=== PATIENT | female | born 1980 | race Caucasian/White ===

== ENCOUNTER 2024-04-12 10:35 | Emergency (ER) | payer MEDICAID, SELFPAY ==
[2024-04-12 10:41] VITALS: PULSE 83; TEMP 36.6; O2SAT 99; BMI 32.1
[2024-04-12 11:26] LABS: Basophils Percent Auto 0.7 % (0.2-2.0); Eosinophils Absolute Auto 0.3 10^3/uL (0.0-0.7); Hematocrit 38.2 % (36.0-48.0); Hemoglobin 12.3 g/dL (12.0-16.0); Immature Granulocytes Abs Auto 0.01 10^3/uL (0.00-0.03); Immature Granulocytes Pct Auto 0.2 % (0.0-0.5); Lymphocytes Absolute Auto 2.2 10^3/uL (1.2-3.8); Lymphocytes Percent Auto 41.6 % (20.5-60.0); Mean Corpuscular HGB Conc 32.2 g/dL (29.9-35.2); Mean Corpuscular Hemoglobin 28.7 pg (26.7-34.0); Mean Corpuscular Volume 89.3 fL (81.0-99.0); Mean Platelet Volume 9.7 fL (9.5-13.5); Monocytes Absolute Auto 0.3 10^3/uL (0.3-0.8); Monocytes Percent Auto 5.8 % (1.7-12.0); Neutrophils Absolute Auto 2.5 10^3/uL (1.4-6.5); Neutrophils Percent Auto 46.7 % (43.0-75.0); Platelet Count 315 10^3/uL (150-450); Red Blood Count 4.28 10^6/uL (4.20-5.40); Red Cell Distribution Width 14.3 % (11.0-15.0); White Blood Count 5.4 10^3/uL (4.0-11.0)
[2024-04-12] MEDS: ONDANSETRON PF 4 MG/2 ML VIAL IV (11:32)
[2024-04-12] MEDS: KETOROLAC TROMETHAMINE 30 MG/ML VIAL 15 MG IVP (11:32)
--- NOTE | 2024-04-12 11:43 | CT_ITS ---
[address] [address] Patient Name: LITO SUE MRN: [id number] date: 1980 Sex: F Assigned Patient Location: ER Current Patient Location: Accession/Order Number: [id number] Exam Date: 04/12/2024 11:41 Report Date: 04/12/2024 12:21 At the request of: DAVID DOMINGUEZ Procedure: CT abdomen pelvis wo con EXAMINATION: CT abdomen pelvis wo con HISTORY: epigastric pain ---hernia ? COMPARISON: No relevant comparison available. TECHNIQUE: Axial, Coronal, and Sagittal images were obtained without and/or with IV contrast as indicated by examination type. Dose reduction techniques were achieved by using automated exposure control and/or adjustment of mA and/or kV according to patient size and/or use of iterative reconstruction technique. FINDINGS: LUNG BASES: No visible pulmonary or pleural disease. LIVER: No enlargement, atrophy, suspicious density, or significant focal lesion. BILIARY: Well distended gallbladder, 13.0 x 5.4 x 5.3 cm. No wall thickening, stones, or abnormal duct dilation. PANCREAS: No lesion, fluid collection, or abnormal duct dilatation. SPLEEN: No enlargement or focal lesion. ADRENALS: No mass or enlargement. KIDNEYS: No mass, obstruction, or calcification. BOWEL/MESENTERY: No visible mass, obstruction, or bowel wall thickening. Normal appendix. AORTA/VASCULAR: No aneurysm or dissection. RETROPERITONEUM: No mass or adenopathy. LYMPH NODES: No adenopathy. URINARY BLADDER: No visible focal wall thickening, lesion, or calculus. PELVIC ORGANS: No visible mass. Pelvic organs appropriate for patient age. ABDOMINAL WALL: 2 small supraumbilical midline ventral hernias containing only fat. The more cephalad one is 3.2 cm in diameter with a small neck but no strangulation. Slightly more inferior, just above the umbilicus is a 3.7 cm fat filled hernia with a small neck, but no strangulation. BONES: No bony lesion or fracture. OTHER: Negative. CT/CT abdomen pelvis wo con IMPRESSION: 1. Well distended gallbladder without appreciable stones or wall thickening; likely due to lack of recent emptying. 2.Fat filled small adjacent supraumbilical midline ventral hernias. No appreciable strangulation or acute involvement. Electronically authenticated by: SARAHI LOYD Date: 04/12/2024 12:21
[2024-04-12 11:49] LABS: Alanine Aminotransferase 10 U/L (14-59); Albumin Globulin Ratio 1.1; Albumin Level 3.7 g/dL (3.4-5.0); Alkaline Phosphatase 71 U/L (46-116); Anion Gap 10.6; Aspartate Amino Transferase 28 U/L (15-37); BUN Creatinine Ratio 15.3; Bilirubin Total 0.3 mg/dL (0.2-1.0); Calcium 9.1 mg/dL (8.5-10.1); Carbon Dioxide 27.4 mmol/L (21.0-32.0); Chloride 101 mmol/L (98-107); Estimated GFR (African America >60 (>=60); Estimated GFR (Non-African Ame >60 (>=60); Globulin 3.5 g/dL; Glucose 91 mg/dL (74-106); Sodium 135 mmol/L (136-145); Total Protein 7.2 g/dL (6.4-8.2)
[2024-04-12 11:56] LABS: HCG Qualitative NEGATIVE (NEGATIVE); Internal Control Within Normal Limits
--- NOTE | 2024-04-12 12:36 | ED_ITS ---
HPI HPI - General Adult General Chief complaint: Abdominal Pain Stated complaint: ABDOMINAL PAIN Time Seen by Provider: 04/12/24 11:02 Source: patient Mode of arrival: walk-in Limitations: no limitations History of Present Illness HPI narrative: The patient presented to us with abdominal pain that started half an hour before arrival, she mentioned that it started all of a sudden associated with some nausea and she was just sitting with no strain The patient have a history of multiple abdominal wall hernia surgeries Related Data Allergies Allergy/AdvReac Type Severity Reaction Status Date / Time No Known Drug Allergies Allergy Verified 04/12/24 10:41 Opioid HPI Opioid Management Most Recent Opioid Data: Last Pain Scale 6 04/12/24 11:32 Last MAR Pain Assessment 04/12/24 11:32 Review of Systems ROS Status of ROS 10 or more systems reviewed and unremark able except as noted in history and below [facility] Surgical History (Updated 04/12/24 @ 10:48 by Danny Romero) H/O tubal ligation ?Z98.51 - Tubal ligation status (ICD-10) H/O hernia repair ?Z98.890 - Other specified postprocedural states (ICD-10) ?Z87.19 - Personal history of other diseases of the digestive system (ICD-10) Social History Little interest or pleasure in doing things: not at all Feeling down, depressed, or hopeless: not at all Exam Narrative Exam Narrative: Nurses notes and vital signs reviewed and patient is not hypoxic. General: Well-appearing and in no apparent distress. Skin: Warm, dry, no pallor noted. No rash. Head: Normocephalic, atraumatic. Neck: Supple, non-tender. Eye: Pupils are equal, round and EOMI. No scleral icterus. Ears, Nose, Mouth, and Throat: TM are clear, no nasal mucosal hypertrophy. Oral mucosa is moist, no posterior oropharynx erythema, uvula is mid-line Cardiovascular: Regular Rate and Rhythm without murmur, gallop or rub. Respiratory: No accessory muscle use or respiratory distress. Lungs are clear to auscultation, no wheezing, rales or rhonchi Chest Wall: no tenderness Back: No midline thoracic or lumbar vertebral tenderness. No CVA tenderness Musculoskeletal: normal ROM, no calf or popliteal tenderness, no lower extremity edema/swelling GI: It was noted that the patient initially had some lump felt in the anterior abdominal wall it was easily reduced ,abdomen is soft, non-distended. Normal bowel sounds. No masses appreciated. No tenderness to palpation. No rebound, guarding, or rigidity noted. Neurological: A&O x4. No cranial nerve dysfunction observed. No truncal ataxia. Moves all extremities. Sensation intact. Psychiatric: Cooperative and interactive. Normal mood and affect. Constitutional Vital Signs, click to edit/add: Last Vital Signs Temp 97.9 F 04/12/24 10:41 Pulse 80 04/12/24 12:49 Resp 16 04/12/24 12:49 BP 135/70 04/12/24 12:49 Pulse Ox 100 04/12/24 12:49 O2 Del Method Room Air 04/12/24 12:49 Course Vital Signs Vital signs: Vital Signs Temperature 97.9 F 04/12/24 10:41 Pulse Rate 83 04/12/24 10:41 Respiratory Rate 20 04/12/24 10:41 Pulse Oximetry 99 04/12/24 10:41 Oxygen Delivery Method Room Air 04/12/24 10:41 Temperature 97.9 F 04/12/24 10:41 Pulse Rate 80 04/12/24 12:49 Respiratory Rate 16 04/12/24 12:49 Blood Pressure 135/70 04/12/24 12:49 Pulse Oximetry 100 04/12/24 12:49 Oxygen Delivery Method Room Air 04/12/24 12:49 Medical Decision Making [facility] Narrative Medical decision making narrative: The patient had a very small possible hernia mostly fat-containing that was reduced in the ER after which the blood workup and the CAT scan showed no acute pathology except for the fat-containing hernia The patient will continue supportive care as she have no more symptoms in the ER and she was referred to general surgery as outpatient patient will come back in case any pain she will avoid any tight clothing and she would avoid any straining The patient is to follow up with primary care physician in next 2-3 days or to return to the emergency department should any of the signs or symptoms worsen or new symptoms develop. The patient agrees with the following Diagnosis and Treatment plan and the patient will be discharged home. Lab Data Labs: Lab Results 04/12/24 Range/Units 11:19 WBC 5.4 (4.0-11.0) 10^3/uL RBC 4.28 (4.20-5.40) 10^6/uL Hgb 12.3 (12.0-16.0) g/dL Hct 38.2 (36.0-48.0) % MCV 89.3 (81.0-99.0) fL MCH 28.7 (26.7-34.0) pg MCHC 32.2 (29.9-35.2) g/dL RDW 14.3 (11.0-15.0) % Plt Count 315 (150-450) 10^3/uL MPV 9.7 (9.5-13.5) fL Neut % (Auto) 46.7 (43.0-75.0) % Lymph % (Auto) 41.6 (20.5-60.0) % [place] % (Auto) 5.8 (1.7-12.0) % Eos % (Auto) 5.0 (0.9-7.0) % Baso % (Auto) 0.7 (0.2-2.0) % Neut # (Auto) 2.5 (1.4-6.5) 10^3/uL Lymph # (Auto) 2.2 (1.2-3.8) 10^3/uL [place] # (Auto) 0.3 (0.3-0.8) 10^3/uL Eos # (Auto) 0.3 (0.0-0.7) 10^3/uL Baso # (Auto) 0.0 (0.0-0.1) 10^3/uL Abs Immat Gran (auto) 0.01 (0.00-0.03) 10^3/uL Imm/Tot Granulo (auto) 0.2 (0.0-0.5) % Sodium 135 L (136-145) mmol/L Potassium 4.0 (3.5-5.1) mmol/L Chloride 101 (98-107) mmol/L Carbon Dioxide 27.4 (21.0-32.0) mmol/L Anion Gap 10.6 BUN 13.0 (7.0-18.0) mg/dL Creatinine 0.85 (0.55-1.02) mg/dL Est GFR ( Amer) >60 (>=60) Est GFR (Non-Af Amer) >60 (>=60) BUN/Creatinine Ratio 15.3 Glucose 91 (74-106) mg/dL Calcium 9.1 (8.5-10.1) mg/dL Total Bilirubin 0.3 (0.2-1.0) mg/dL AST 28 (15-37) U/L ALT 10 L (14-59) U/L Alkaline Phosphatase 71 (46-116) U/L Total Protein 7.2 (6.4-8.2) g/dL Albumin 3.7 (3.4-5.0) g/dL Globulin 3.5 g/dL Albumin/Globulin Ratio 1.1 Serum HCG, Qual Negative (NEGATIVE) Discharge Plan Discharge Chief Complaint: Abdominal Pain Clinical Impression: Abdominal wall hernia Patient Disposition: Home, Self-Care Time of Disposition Decision: 12:37 Condition: Good Print Language: Czech Instructions: Ventral Hernia Repair (DC) Referrals: Bandar Amaro DO [Physician] - 1 week KETURAH STAPLETON [Primary Care Provider] - 1 week Discharge Date/Time: 04/12/24 12:52
[2024-04-12 12:49] VITALS: BP 135/70; PULSE 80; O2SAT 100
== END 2024-04-12 12:52 | disposition home or self-care (01) ==
PROVIDERS: Emergency Provider Emergency Medicine; PCP Nurse Practitioner
DX: K43.9 Ventral hernia without obstruction or gangrene (principal)
CPT/HCPCS: 36415; 74176; 80053; 84703; 85025; 96374; 96375; 99284; J1885; J2405